=== PATIENT | male | born 1975 | race Caucasian/White ===

== ENCOUNTER 2021-12-06 06:10 | Emergency (ER) | payer SELFPAY ==
[2021-12-06 06:24] VITALS: BP 129/84; PULSE 70; RESP 16; TEMP 36.6; O2SAT 98; BMI 27.2
--- NOTE | 2021-12-06 08:23 | ED.GENADULT ---
HPI - General Adult General Chief complaint: General Medical Stated complaint: Possible Hemorrhoid Time Seen by Provider: 12/06/21 08:08 Source: patient Mode of arrival: ambulatory Limitations: no limitations History of Present Illness HPI narrative: 46 y/o male presents to the ER with hemorrhoid pain for the last 4 days. He reports a history of the same once before. No history of or current bleeding. He is constipated and afraid to have a BM due to the pain. He states it hurts to sit. He has not tried any topical medications as of yet. No fever, chills, N/V or GI bleeding. MD complaint: rectal pain 2/2 hemorrhoids Onset (ago): day(s) (4) Location: buttocks Radiation: non-radiation Severity: severe Severity scale (1-10): 8 Quality: stabbing and sharp Pain Consistency: intermittent Relieving factors: none Exacerbating factors: other (BM, sitting) Associated symptoms: denies other symptoms Treatments prior to arrival: none Related Data Previous Rx's Medication Instructions Recorded docusate sodium 100 mg capsule 100 mg PO BID #30 cap 12/06/21 (Colace) hydrocortisone 1 %-pramoxine 1 % 1 appl [place] QID PRN #10 g 12/06/21 rectal foam (Proctofoam HC) polyethylene glycol 3350 17 17 g PO DAILY #119 g 12/06/21 gram/dose oral powder (Miralax) Allergies Allergy/AdvReac Type Severity Reaction Status Date / Time Unable to Assess Allergy Unverified 12/06/21 08:17 Review of Systems Review of Systems: Constitutional: No Fever, No Chills Cardiovascular: No Chest Pain, No SOB, No Orthopnea, No Edema Respiratory: No Cough, No Sputum, No Wheezing, No dyspnea Gastrointestinal: No Nausea, No Vomiting, No Diarrhea, No abdominal Pain, No Hematochezia, No Melena, +rectal pain Genitourinary: No Dysuria, No Urinary Frequency, No Hematuria Musculoskeletal: No joint pain, No Myalgias Skin: No Skin Lesions, No rash Neuro: No Weakness, No Numbness, No Dizziness, No Headache Psych: No Anxiety/Panic, No Depression Heme/Lymph: No Bruising, No Lymphadenopathy PMFSH Social History Social History Alcohol intake: never Patient Tobacco Use Status: Current everyday Tobacco user Physical Exam ED Vital Signs: Vital Signs - 24 hr 12/06/21 06:24 Temperature 97.9 F Pulse Rate 70 Respiratory Rate 16 Blood Pressure 129/84 Pulse Oximetry 98 BMI result Body Mass Index 27.2 Appearance: Alert. Oriented X3. No acute distress. Eyes: Pupils equal, round and reactive to light. ENT: Pharynx normal. Neck: Normal inspection. Neck supple. CVS: Normal heart rate and rhythm. Pulses normal. Respiratory: No respiratory distress. Breath sounds normal. Abdomen: Soft and nontender. +BS x4 Rectal: external hemorrhoid, nonthrombosed. tender. non bleeding. no palpable internal hemorrhoids. Skin: Skin warm and dry. Normal skin color. Normal skin turgor. No rashes. Extremities: Normal inspection x4 Neuro: Oriented X 3. Grossly normal, nonfocal Course Course Course Narrative: 46 yo male presents to the ER with painful, non-bleeding hemorrhoids. External, non-thrombosed tender hemorrhoid on exam.Will give prescription for proctofoam and f/u with general surgery, no indication for incision today. Stable for d/c home. Critical Care Time Critical Care Time Critical Care Time: No Discharge Plan Discharge Clinical Impression: Hemorrhoids Patient Disposition: Home, Self-Care Instructions: Hemorrhoids (DC), Sitz Bath (DC) Additional Instructions: use the prescribed medications as directed (sent to [facility] on ) increase your oral hydration and fiber intake take the laxative and stool softener to treat and prevent constipation follow up with general surgery for further evaluation Prescriptions: New Proctofoam HC 1-1 % foam 1 appl IL QID PRN (Reason: hemorrhoids) Qty: 10 0RF polyethylene glycol 3350 [Miralax] 17 gram/dose powder 17 g PO DAILY Qty: 119 0RF docusate sodium [Colace] 100 mg capsule 100 mg PO BID Qty: 30 0RF Referrals: Ruy Duval MD [Physician] - (hemorrhoids) Stand Alone Forms: Work/School Release Interventions: ED Discharge Assessment Last Done: 12/06/21 08:53 Discharge Date/Time: 12/06/21 08:54
[2021-12-06] MEDS: Lidocaine 4 % Cream KIT 1 APPL TOPICAL (08:42)
== END 2021-12-06 08:54 | disposition home or self-care (01) ==
PROVIDERS: Emergency Provider Emergency Medicine
DX: K64.4 Residual hemorrhoidal skin tags (principal); K59.00 Constipation, unspecified
CPT/HCPCS: 99283

== ENCOUNTER 2023-07-27 10:00 | Emergency (ER) | payer SELFPAY ==
--- NOTE | ~2023-07-27 | CT_ITS ---
EXAMINATION: CT SCAN OF THE TEMPORAL BONES CLINICAL INFORMATION: Mastoid tenderness to palpation, concern for abscess COMPARISON: None. TECHNIQUE: Multidetector helical imaging was performed in the axial plane with generation of oblique axial and coronal reformatted projections. This CT examination was performed using dose optimization techniques as appropriate, variously including the following: *Automated exposure control *Adjustment of mA and/or kV according to patient size (this includes techniques or standardized protocols for targeted exams where dose is matched to indication/reason for exam; i.e. extremities or head) *Use of iterative reconstruction technique DLP: 264 mGy-cm. FINDINGS: There is significant edema soft tissue thickening of the inferior right auricle/lobule compatible with cellulitis. Please note that lack of intravenous contrast administration precludes assessment for abscess. There is skin thickening and subcutaneous reticulation within the infra-auricular/periparotid soft tissues and myofascial thickening overlying the right parotid gland and inflammatory change of the right perimastoidal soft tissues. The external auditory canals are clear. The tympanic membranes are intact without thickening. The middle ear cavities are clear. The ossicles are normal without erosive change. The round and oval windows are normal. There is normal mineralization of the otic capsules. The tegmen tympani and tegmen mastoideum are intact bilaterally. The mastoid air cells are clear. The cochlea, vestibule, and semicircular canals are normal bilaterally. The vestibular aqueducts are normal. The bony internal auditory canals are normal. The facial nerve canals are normal. -- Other Findings -- The bilateral carotid canals and jugular foramina are normal. The visualized paranasal sinuses are well aerated. The orbits are unremarkable. The visualized intracranial structures are normal. Partially imaged ossified styloid processes/stylohyoid ligaments can be correlated clinically for signs of Brook[place] syndrome. CT/CT mastoid IMPRESSION: Significant edema soft tissue thickening of the inferior right auricle/lobule, compatible with cellulitis. Please note that lack of intravenous contrast administration precludes assessment for abscess. Adjacent cellulitic changes within the right perimastoidal and right parotid gland and infra-auricular/periparotid soft tissues. No evidence of otomastoiditis. Partially imaged ossified styloid processes/stylohyoid ligaments can be correlated clinically for signs of Brookfield syndrome.
[2023-07-27 10:09] VITALS: BP 140/97; PULSE 69; RESP 17; TEMP 36.6; O2SAT 96; BMI 29.3
--- NOTE | 2023-07-27 10:36 | ED_ITS ---
HPI - Ear Problem General Chief complaint: Ear Problems Stated complaint: cyst behind r ear Time Seen by Provider: 07/27/23 10:24 Source: patient Mode of arrival: ambulatory Limitations: no limitations History of Present Illness HPI Narrative: Patient is a 48-year-old male who presents emergency department for evaluation of an abscess behind the right ear. He reports initial onset 1 week ago that is progressively worsening over the past 2-3 days. It is very tender to touch. Denies any active drainage. He states he has had similar abscesses elsewhere on his body all which have drained on their own without incision and drainage. He also states he is experiencing pain in side of the right ear canal, in pain extending away from the abscess towards his scalp and neck. He denies fevers or chills. Denies neck pain or neck stiffness. Denies URI symptoms. Related Data Previous Rx's Medication Instructions Recorded docusate sodium 100 mg capsule 100 mg PO BID #30 caps 12/06/21 (Colace) hydrocortisone 1 %-pramoxine 1 % 1 appl ND QID PRN hemorrhoids #10 12/06/21 rectal foam (Proctofoam HC) grams polyethylene glycol 3350 17 17 g PO DAILY #119 grams 12/06/21 gram/dose oral powder (Miralax) amoxicillin 875 mg-potassium 1 tab PO BID #20 tabs 07/27/23 clavulanate 125 mg tablet Allergies Allergy/AdvReac Type Severity Reaction Status Date / Time No Known Allergies Allergy Verified 07/27/23 12:37 Review of Systems 2 Review of Systems: Yes all other systems are reviewed and are negative PMFSH Past Medical History Attestation statement: The following information was validated with the patient. Source: old records reviewed Onset Date is defined in the Problem List Problems that require an onset date and time if occurred within 24 hrs of arrival to the ED Aortic Dissection and Rupture; Neurologic impairment; Cardiopulmonary Arrest; Endotracheal Intubation; Insertion or Replacement of Mechanical Circulatory Assist Device Social History Social History Alcohol intake: never Patient Tobacco Use Status: Current everyday Tobacco user Advance Directives: No Advance Directives Information Provided: No Physical Exam 2 Vital Signs: Vital Signs: Last Vital Signs Temp 97.8 F 07/27/23 10:09 Pulse 69 07/27/23 10:09 Resp 17 07/27/23 10:09 BP 140/97 H 07/27/23 10:09 Pulse Ox 96 07/27/23 10:09 O2 Del Method Room Air 07/27/23 10:09 BMI result Body Mass Index 29.3 Appearance: Alert.?Oriented to person, place and time. No acute distress.?Normal affect. Eyes: Pupils equal, round and reactive to light.? ENT: Pharynx normal.? TM normal bilaterally. External auditory canal without erythema lesions or drainage. Right year with abscess along the posterior aspect involving the eminence of the rosy and the upper aspect of the lobe, soft and fluctuant. Mastoid tenderness upon palpation with localized swelling. Neck: Normal inspection.? Neck supple.?? no neck stiffness. CVS: Heart sounds normal. Normal heart rate and rhythm.? Pulses normal.?? Respiratory: No respiratory distress.? Lung sounds clear to auscultation bilaterally?? Skin: Skin warm and dry.? Normal skin color.? ?? Extremities: No lower extremity edema.? Neuro: Moves all extremities spontaneously. Sensation intact bilaterally. CN II- XII intact. No focal neuro deficits. Ambulates with normal steady gait. Course Reevaluation(s) Reevaluation #1: CT of the mastoid is without evidence of otomastoiditis, cellulitic changes are present. Partially imaged ossified styloid process/ligaments with recommendations for clinical correlation for kaibab syndrome. He is without any sudden onset of sharp severe neck throat tongue mouth or facial pain, speech changes or difficulty swallowing, no globus sensation, no headache. 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 Medications Administered Discontinued Medications Generic Name Dose Route Start Last Admin Trade Name Elmerq PRN Reason Stop Dose Admin Lidocaine HCl 5 ml 07/27/23 12:35 07/27/23 12:45 Lidocaine Hcl 1 % Mpf 5 Ml Vial SUBCUT 07/27/23 12:36 5 ml ONCE ONE Administration Procedures Abscess I/D Site: other ( posterior ear) Side (if applicable): right Local Anesthetic: lidocaine 1% Amount of anesthesia used (mL): 5 Technique: incised with blade Irrigation: Yes Packing used?: none Nerve Block Nerve Block 1: Time out performed: Yes Local Anesthetic: lidocaine 1% Amount of anesthesia used (mL): 4 Side: right Nerve Blocks: other ( Regional auricular block) Procedure Successful: Yes Patient Tolerated Procedure: well Complications: none Medical Decision Making Medical Decision Making [facility] Narrative: patient is a 48 year old male who presents emergency department for evaluation of abscess to the right posterior your as per physical examination of this note, with onset approximately 1 week ago progressive worsening over the past 2-3 days with notable increased pain and swelling. On physical exam he does have tenderness over the mastoid region, for this will obtain CT to exclude mastoiditis in addition to basic labs. The abscess will require incision and drainage as per procedural section of this note. Differential Diagnosis Differential Diagnoses: The differential diagnosis associated with the presentation includes ( Abscess, cellulitis, AROM, externa, mastoiditis) Admission/Observation Consideration of admission/observation: Escalation of care including admission/observation considered ( See narrative above) Lab Data [facility] Lab Attestation statement: I reviewed the patient's lab results. CBC is without leukocytosis or anemia, CMP reveals mildly elevated glucose though he did eat just prior to arriving in the emergency department. 07/27/23 10:52 07/27/23 10:52 Labs: Lab Results 07/27/23 Range/Units 10:52 WBC 7.6 (4.8-10.8) X10*3/uL RBC 5.25 (4.60-5.80) X10*6/uL Hgb 16.4 (14.0-18.0) g/dl Hct 49.3 (42.0-52.0) % MCV 93.9 (80.0-98.0) fL MCH 31.2 (27.0-33.0) pg MCHC 33.3 (31.0-36.0) g/dl RDW 12.0 (11.0-16.0) % Plt Count 278 (160-400) X10*3/uL MPV 8.8 L (9.4-12.4) fL Immature Gran % (Auto) 0.4 (0.0-0.4) % Neut % (Auto) 65.2 (45-73) % Lymph % (Auto) 22.0 (20-40) % Baker % (Auto) 8.4 (2-11) % Eos % (Auto) 3.7 (0-4) % Baso % (Auto) 0.3 (0-2) % Lymph # (Auto) 1.7 (1.2-4.9) X10*3/uL Baker # (Auto) 0.6 (0.1-1.2) X10*3/uL Eos # (Auto) 0.3 (0.0-0.4) X10*3/uL Baso # (Auto) 0.0 (0.0-0.2) X10*3/uL Abs Immat Gran (auto) 0.03 (0.00-0.03) X10*3/uL Absolute Neuts (auto) 5.0 (2.0-8.3) x10*3/uL Absolute Nucleated RBC 0.000 (0.0-0.012) X10*3/uL Nucleated RBC % (auto) 0.0 (0.0-0.2) /100WBC Sodium 143 (135-145) mmol/L Potassium 4.5 (3.3-5.1) mmol/L Chloride 109 H (96-108) mmol/L Carbon Dioxide 25 (22-29) mmol/L Anion Gap 14 (12-20) BUN 19 H (9-16) mg/dL Creatinine 0.96 (0.5-1.4) mg/dL Estim Creat Clear Calc 106.5 Estimated GFR > 60 Random Glucose 118 H (60-115) mg/dL Calcium 9.8 (8.4-10.2) mg/dL Independent Interpretation I performed an independent interpretation of an: CT Scan Radiology Impression Discussion of test interpretation with radiology: I have reviewed the radiologist's reading. Radiologist Impression: CT/CT mastoid IMPRESSION: Significant edema soft tissue thickening of the inferior right auricle/lobule, compatible with cellulitis. Please note that lack of intravenous contrast administration precludes assessment for abscess. Adjacent cellulitic changes within the right perimastoidal and right parotid gland and infra-auricular/periparotid soft tissues. No evidence of otomastoiditis. Partially imaged ossified styloid processes/stylohyoid ligaments can be correlated clinically for signs of Valier syndrome. Independent Historian Clinical information obtained from an independent historian. History obtained from or confirmed by: Spouse ( present at bedside who confirms history) External Record Review External record reviewed: Outpatient record Prescription Management I considered prescription management with: Antibiotic Discharge Plan Discharge Clinical Impression: Abscess Patient Disposition: Home, Self-Care Instructions: Abscess Incision and Drainage (DC) Additional Instructions: Warm moist compresses 3 times daily for 10-15 minutes. Complete the entire course of antibiotics as prescribed. You can take ibuprofen 200 mg, 3 tablets (600mg) every 6-8 hours as needed for pain, in addition to Tylenol 500 mg, 2 tablets (1,000mg) every 4-6 hours as needed for pain, but not to exceed 3 doses daily (3,000mg).? Contact primary care provider to arrange for a follow-up visit. Return back to emergency department any new or worsening symptoms or concerns. Prescriptions: New amoxicillin-pot clavulanate 875-125 mg tablet 1 tab PO BID Qty: 20 0RF No Action Proctofoam HC 1-1 % foam 1 appl ND QID PRN (Reason: hemorrhoids) Qty: 10 0RF polyethylene glycol 3350 [Miralax] 17 gram/dose powder 17 g PO DAILY Qty: 119 0RF docusate sodium [Colace] 100 mg capsule 100 mg PO BID Qty: 30 0RF
[2023-07-27 10:56] LABS: MANUAL DIFF FLAG NO
[2023-07-27 10:57] LABS: Basophils Percent Auto 0.3 % (0-2); Eosinophils Absolute Auto 0.3 X10*3/uL (0.0-0.4); Eosinophils Percent Auto 3.7 % (0-4); Hematocrit 49.3 % (42.0-52.0); Hemoglobin 16.4 g/dl (14.0-18.0); Imm Gran Abs Auto 0.03 X10*3/uL (0.00-0.03); Imm Gran Pct Auto 0.4 % (0.0-0.4); Lymphocytes Absolute Auto 1.7 X10*3/uL (1.2-4.9); Mean Corpuscular HGB Conc 33.3 g/dl (31.0-36.0); Mean Corpuscular Hemoglobin 31.2 pg (27.0-33.0); Mean Corpuscular Volume 93.9 fL (80.0-98.0); Mean Platelet Volume 8.8 fL (9.4-12.4); Monocytes Absolute Auto 0.6 X10*3/uL (0.1-1.2); Monocytes Percent Auto 8.4 % (2-11); Neutrophils Percent Auto 65.2 % (45-73); Platelet Count 278 X10*3/uL (160-400); Red Blood Count 5.25 X10*6/uL (4.60-5.80); White Blood Count 7.6 X10*3/uL (4.8-10.8)
[2023-07-27 11:07] LABS: Anion Gap 14 (12-20); Blood Urea Nitrogen 19 mg/dL (9-16); Calcium 9.8 mg/dL (8.4-10.2); Carbon Dioxide 25 mmol/L (22-29); Chloride 109 mmol/L (96-108); Creatinine Clr Calc Pharmacy 106.5; Estimated Glomerular Filt Rate > 60; Glucose Random 118 mg/dL (60-115); Potassium 4.5 mmol/L (3.3-5.1); Sodium 143 mmol/L (135-145)
[2023-07-27] MEDS: Lidocaine HCl 1 % MPF 5 ML VIAL SUBCUT (12:45)
--- NOTE | 2023-07-27 12:52 | PC.NURSE ---
provider at bedside
[2023-07-27 13:43] VITALS: BP 141/99; PULSE 67; RESP 16; TEMP 36.7; O2SAT 98
== END 2023-07-27 13:44 | disposition home or self-care (01) ==
PROVIDERS: Nurse Practitioner Family; Emergency Provider Student in an Organized Health Care Education/Training Program
DX: H60.01 Abscess of right external ear (principal)
CPT/HCPCS: 36415; 69000; 70481; 80048; 85025; 99282; 99284